=== PATIENT | male | born 1965 | race Caucasian/White ===

== ENCOUNTER 2020-08-09 17:00 | Emergency (ER) | payer OTHER ==
[~2020-08-09] VITALS: Ht 185.4 cm; Wt 93.9 kg
[2020-08-09 17:23] LABS: ABSOLUTE BASOPHILS 0.1 thou/uL (0.0-0.2); ABSOLUTE EOSINOPHILS 0.4 thou/uL (0.0-0.7); ABSOLUTE LYMPHOCYTES 1.2 thou/uL (0.8-5.3); ABSOLUTE MONOCYTES 0.8 thou/uL (0.0-1.2); ABSOLUTE NEUTROPHILS 6.9 thou/uL (1.6-8.1); EOSINOPHILS 4.5 %; HEMATOCRIT 50.5 % (42.0-52.0); HEMOGLOBIN 17.3 gm/dL (14.0-18.0); LYMPHOCYTES 13.2 %; MCH 32.4 pg (26.0-34.0); MCHC 34.3 g/dL (28.0-37.0); MCV 94.4 fL (80.0-100.0); MONOCYTES 8.1 %; NUCLEATED RBCS 0 /100WBC; PLATELET COUNT* 215 thou/uL (150-400); POLYS 73.2 %; RBC 5.35 mil/uL (4.50-6.00); RDW-CV 13.5 % (10.5-14.5); WBC 9.5 thou/uL (4.0-11.0)
[2020-08-09 17:32] LABS: CREATININE 1.1 mg/dL (0.6-1.3); POTASSIUM 4.5 mmol/L (3.5-5.1)
[2020-08-09 17:34] LABS: ALBUMIN 3.6 g/dL (3.4-5.0)
[2020-08-09 17:54] LABS: TOTAL BILIRUBIN 0.7 mg/dL (<0.1-1.0); TOTAL PROTEIN 8.2 g/dL (6.4-8.2)
[2020-08-09 18:21] VITALS: BP 147/88
--- NOTE | 2020-08-10 12:45 | EKG ---
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[id number] Requested By: Yosi Darby Order Number: [id number] MD: Edgardo Torres Measurements Intervals [place] Rate: 63 P: 44 SC: 164 QRS: 126 QRSD: 120 T: 227 QT: 430 QTc: 441 Interpretive Statements Sinus rhythm Multiple ventricular premature complexes Nonspecific intraventricular conduction delay Nonspecific T abnormalities, lateral leads Borderline ST elevation, anterior leads Baseline wander in lead(s) V1 No previous ECG available for comparison Electronically Signed On 08-10-2020 12:45:26 CDT by Edgardo Torres [email or web address] <ELECTRONICALLY SIGNED> By: Edgardo Torres MD, [facility] 08/10/20 1245 1720 1720 Edgardo Torres MD, [facility] /EPI
== END 2020-08-09 18:24 | disposition left against medical advice (07) ==
LOC: M.ERS 17:00
PROVIDERS: Emergency Medicine
DX: I63.9 Cerebral infarction, unspecified (principal); H57.89 Other specified disorders of eye and adnexa; F17.210 Nicotine dependence, cigarettes, uncomplicated